=== PATIENT | male | born 1955 | race Caucasian/White ===

== ENCOUNTER → 2020-10-27 | Outpatient (CLI) | payer OTHER ==
[~2020-10-27] MED LIST: SPIRIVA18 MCG PO; SYMBICORT1 AE1 INH
== END | disposition home or self-care (01) ==
LOC: CARD 10-15 08:30
PROVIDERS: ATTEND Family Medicine
DX: C78.00 Secondary malignant neoplasm of unspecified lung (principal); R60.9 Edema, unspecified; J90 Pleural effusion, not elsewhere classified

== ENCOUNTER → 2023-06-25 | Outpatient (CLI) | payer OTHER, MEDICAID ==
[2023-06-25 10:32] LABS: HEMATOCRIT 37.6 % (42.0-52.0); MEAN CELL VOLUME 100.5 fl (80.0-94.0); MEAN CORPUSCULAR HGB 31.6 pg (27.0-31.0); MEAN CORPUSCULAR HGB CONC 31.4 g/dl (33.0-37.0); MEAN PLATELET VOLUME 9.6 fl (9.6-12.3); RED BLOOD COUNT 3.74 10*6/uL (4.50-5.90); RED CELL DISTRI WIDTH 13.2 % (0-14.5); WHITE BLOOD COUNT 7.1 10*3/uL (4.8-10.8)
[2023-06-25 10:54] LABS: ALKALINE PHOSPHATASE 99 U/L (46-116); BUN 14 mg/dl (9-23); CHLORIDE 102 mmol/L (98-107); CHOLESTEROL 218 mg/dL (<200); LDL CHOLESTEROL 137 mg/dL (9-159); POTASSIUM 4.4 mmol/L (3.4-5.1); SGPT/ALT 14 U/L (10-49); TOTAL PROTEIN 7.1 gm/dL (6.0-8.0); TRIGLYCERIDES 149 mg/dl (<150)
== END | disposition home or self-care (01) ==
LOC: LAB 09:48
PROVIDERS: ATTEND Family Medicine
DX: Z12.5 Encounter for screening for malignant neoplasm of prostate (principal); Z00.00 Encounter for general adult medical examination without abnormal findings; J44.9 Chronic obstructive pulmonary disease, unspecified; J98.11 Atelectasis; I10 Essential (primary) hypertension; R91.1 Solitary pulmonary nodule; I26.01 Septic pulmonary embolism with acute cor pulmonale; I82.621 Acute embolism and thrombosis of deep veins of right upper extremity; R53.83 Other fatigue; E55.9 Vitamin D deficiency, unspecified

== ENCOUNTER → 2024-04-28 | Outpatient (CLI) | payer OTHER, MEDICAID ==
[2024-04-28 09:20] LABS: HEMATOCRIT 38.2 % (42.0-52.0); MEAN CELL VOLUME 103.5 fl (80.0-94.0); MEAN CORPUSCULAR HGB 31.4 pg (27.0-31.0); MEAN CORPUSCULAR HGB CONC 30.4 g/dl (33.0-37.0); MEAN PLATELET VOLUME 9.6 fl (9.6-12.3); RED BLOOD COUNT 3.69 10*6/uL (4.50-5.90); RED CELL DISTRI WIDTH 14.6 % (0-14.5); WHITE BLOOD COUNT 6.1 10*3/uL (4.8-10.8)
[2024-04-28 09:47] LABS: ALKALINE PHOSPHATASE 111 U/L (46-116); BUN 15 mg/dl (9-23); CHLORIDE 99 mmol/L (98-107); CHOLESTEROL 242 mg/dL (<200); LDL CHOLESTEROL 170 mg/dL (9-159); POTASSIUM 4.8 mmol/L (3.4-5.1); SGPT/ALT 17 U/L (5-49); TOTAL PROTEIN 7.9 gm/dL (6.0-8.0); TRIGLYCERIDES 95 mg/dl (<150)
[2024-04-28 10:35] LABS: VITAMIN D, 25-HYDROXY 12.6 ng/mL (30-100)
== END | disposition home or self-care (01) ==
LOC: LAB 01:44
PROVIDERS: ATTEND Family Medicine
DX: E55.9 Vitamin D deficiency, unspecified (principal); E78.00 Pure hypercholesterolemia, unspecified; J44.9 Chronic obstructive pulmonary disease, unspecified; R06.02 Shortness of breath; R53.83 Other fatigue; C34.90 Malignant neoplasm of unspecified part of unspecified bronchus or lung

== ENCOUNTER → 2024-09-04 | Outpatient (CLI) | payer OTHER, MEDICAID ==
[2024-09-04 10:41] LABS: ALKALINE PHOSPHATASE 92 U/L (46-116); BUN 16 mg/dl (9-23); CHLORIDE 99 mmol/L (98-107); CHOLESTEROL 212 mg/dL (<200); CPK 97 U/L (34-171); LDL CHOLESTEROL 147 mg/dL (9-159); POTASSIUM 4.2 mmol/L (3.4-5.1); SGPT/ALT 11 U/L (5-49); TOTAL PROTEIN 7.3 gm/dL (6.0-8.0); TRIGLYCERIDES 102 mg/dl (<150)
== END | disposition home or self-care (01) ==
LOC: LAB 09:23
PROVIDERS: ATTEND Family Medicine
DX: Z12.5 Encounter for screening for malignant neoplasm of prostate (principal); I10 Essential (primary) hypertension; E78.00 Pure hypercholesterolemia, unspecified

== ENCOUNTER → 2025-09-14 | Outpatient (CLI) | payer OTHER, MEDICAID ==
[2025-09-14 10:36] LABS: MEAN CELL VOLUME 105.8 fl (80.0-94.0); MEAN CORPUSCULAR HGB 33.0 pg (27.0-31.0); MEAN PLATELET VOLUME 10.6 fl (9.6-12.3); NUCLEATED RED BLOOD CELL 0.0 % (0.0-0.0); NUCLEATED RED BLOOD CELL 0.0 10*3/uL (0.0-0.0); PLATELET COUNT AUTOMATED 48.0 10*3/uL (130-400); RED CELL DISTRI WIDTH 16.6 % (0-14.5)
[2025-09-14 10:57] LABS: BUN 23 mg/dl (9-23); LDL CHOLESTEROL 93 mg/dL (9-159); SGPT/ALT 13 U/L (5-49)
== END | disposition home or self-care (01) ==
LOC: LAB 10:03
PROVIDERS: ATTEND Family Medicine
DX: Z12.5 Encounter for screening for malignant neoplasm of prostate (principal); J44.9 Chronic obstructive pulmonary disease, unspecified; I10 Essential (primary) hypertension; E78.00 Pure hypercholesterolemia, unspecified; E74.9 Disorder of carbohydrate metabolism, unspecified; Z79.899 Other long term (current) drug therapy